=== PATIENT | male | born 1965 | race American Indian/Alaskan Native ===

== ENCOUNTER 2021-06-21 10:25 | Outpatient (CLI) | payer OTHER ==
--- NOTE | 2021-06-21 11:12 | XRay Report ---
Cervical spine 4 views INDICATION: Neck pain FINDINGS: Endplate changes with small anterior disc osteophytes are seen throughout. No prevertebral soft tissue swelling is seen. No subluxation. IMPRESSION: Degenerative change. Signer Name: Fransisco Ferguson MD Signed: 06/21/2021 11:07 AM Workstation Name: [id number]
--- NOTE | 2021-06-21 11:13 | XRay Report ---
Right shoulder 3 views INDICATION: Shoulder pain FINDINGS: Moderate degenerative change and glenohumeral joint. Mild AC degenerative change. No acute fracture or dislocation. Signer Name: Fransisco Ferguson MD Signed: 06/21/2021 11:08 AM Workstation Name: [id number]
== END 2021-06-21 10:26 | disposition home or self-care (01) ==
LOC: XRAY 10:25
PROVIDERS: ATTEND Internal Medicine
DX: M19.011 Primary osteoarthritis, right shoulder (principal); M25.78 Osteophyte, vertebrae; M47.812 Spondylosis without myelopathy or radiculopathy, cervical region
CPT/HCPCS: 72040